=== PATIENT | female | born 1955 | race Caucasian/White ===

== ENCOUNTER → 2023-12-14 | Outpatient (CLI) | payer MEDICARE, OTHER ==
[~2023-12-14] MED LIST: CARV3.125 PO; LIDOCAINE1 EACH TOP; OMEP20ER PO; Robaxin750 MG PO; SPIRONOLACTONE50 MG PO
[2023-12-14 18:14] LABS: BASOPHILS ABSOLUTE AUTO 0.02 K/mm3 (0.00-0.23); BASOPHILS PERCENT AUTO 1 % (0-2); EOSINOPHILS ABSOLUTE AUTO 0.11 K/mm3 (0.00-0.68); EOSINOPHILS PERCENT AUTO 4 % (0-6); Hematocrit 30.7 % (33.0-51.0); Hemoglobin 10.7 g/dL (11.5-16.0); IMMATURE GRAN PERCENT AUTO 0 % (0-1); LYMPHOCYTES ABSOLUTE AUTO 1.16 K/mm3 (0.84-5.20); LYMPHOCYTES PERCENT AUTO 40 % (21-46); MONOCYTES ABSOLUTE AUTO 0.27 K/mm3 (0.16-1.47); MONOCYTES PERCENT AUTO 9 % (4-13); Mean Corpuscular HGB 33.6 pg (26.0-34.0); Mean Corpuscular HGB Conc 34.9 g/dL (31.5-36.5); Mean Corpuscular Volume 97 fL (80-100); Mean Platelet Volume 11.3 fL (9.1-12.4); NEUTROPHILS ABSOLUTE AUTO 1.38 K/mm3 (1.96-9.15); NEUTROPHILS PERCENT AUTO 47 % (41-73); Platelet Count 64 K/mm3 (150-400); RDW Coefficient Variation 14.6 % (11.7-14.2); RDW Standard Deviation 52.2 fL (35.1-46.3); Red Blood Cell Count 3.18 M/mm3 (3.80-5.20); White Blood Cell Count 2.94 K/mm3 (4.00-11.30)
[2023-12-14 18:34] LABS: Percent Saturation 62.8 % (15.0-50.0)
== END | disposition home or self-care (01) ==
LOC: LAB 15:21 → LAB SHORT 15:21
PROVIDERS: Internal Medicine Hematology & Oncology
DX: E83.119 Hemochromatosis, unspecified (principal)
CPT/HCPCS: 36415; 82728; 83540; 83550; 85025

== ENCOUNTER → 2024-01-25 | Outpatient (CLI) | payer MEDICARE, OTHER ==
[2024-01-25 19:45] LABS: Percent Saturation 61.9 % (15.0-50.0)
== END ==
LOC: LAB 15:00 → LAB SHORT 15:00
PROVIDERS: Internal Medicine Hematology & Oncology
DX: E83.119 Hemochromatosis, unspecified (principal)
CPT/HCPCS: 82728; 83540; 83550

== ENCOUNTER 2025-03-26 16:12 | Emergency (ER) | payer OTHER, MEDICARE ==
[~2025-03-26] VITALS: Ht 175.3 cm; Wt 95.2 kg
[2025-03-26 16:14] VITALS: BP 155/77
[2025-03-26] MEDS ORDERED: FentaNYL Citrate 50 MCG/ML 2 ML Injection IM ONE (16:40)
[2025-03-26] MEDS ORDERED: Percocet 5-3251 EACH PO (18:11)
[2025-03-26] MEDS ORDERED: RX Prepack 6 Tabs Oxycodone 5mg UD ONE (18:15)
== END 2025-03-26 18:30 | disposition home or self-care (01) ==
LOC: ER 16:12
DX: S82.832A Other fracture of upper and lower end of left fibula, initial encounter for closed fracture (principal); K21.9 Gastro-esophageal reflux disease without esophagitis; Z88.0 Allergy status to penicillin; Z91.041 Radiographic dye allergy status; Z91.040 Latex allergy status; Z79.899 Other long term (current) drug therapy; Z59.89 Other problems related to housing and economic circumstances; W01.0XXA Fall on same level from slipping, tripping and stumbling without subsequent striking against object, initial encounter
CPT/HCPCS: 73590; 73610; 96372; 99283-25; A9270; J3010